=== PATIENT | female | born 1955 | race Caucasian/White ===

== ENCOUNTER 2016-11-28 17:18 | Emergency (ER) | payer BC ==
[~2016-11-28] VITALS: Ht 167.6 cm; Wt 104.0 kg
[2016-11-28 18:37] LABS: Albumin 3.5 g/dL (3.4-5.0); BUN/Creatinine Ratio 24.6; Calcium 8.8 mg/dL (8.5-10.1); Potassium 3.6 mmol/L (3.5-5.1)
[2016-11-28 18:39] LABS: Basophils # (auto) 0 uL; Basophils % (auto) 0.6 % (0.0-2.0); DEFINITIVE VIEW TRANSMISSION; Eosinophils # (auto) 0.3 uL; Eosinophils % (auto) 4.2 % (0.0-7.0); Hematocrit 43.6 % (36.0-46.0); Hemoglobin 13.6 g/dL (12.2-16.2); Lymphocytes # (auto) 1.8 uL; Lymphocytes % (auto) 27.4 % (10.0-50.0); Mean Corpuscular Hemoglobin 25.5 pg (28.0-32.0); Mean Corpuscular Hgb Conc. 31.1 g/dL (32.0-36.0); Mean Corpuscular Volume 82.1 fL (80.0-100.0); Mean Platelet Volume 7.9 fL (7.4-10.4); Monocytes # (auto) 0.6 uL; Monocytes % (auto) 9.5 % (0.0-12.0); Neutrophils # (auto) 3.8 uL; Neutrophils % (auto) 58.3 % (37.0-80.0); Platelet Count (auto) 286 10^3/uL (140-450); Red Cell Distribution Width 13.6 % (11.6-16.0); White Blood Cell 6.5 10^3/uL (4.4-10.8)
[2016-11-28 18:40] LABS: Bilirubin, Total 0.3 mg/dL (0.2-1.0); Total Protein 7.6 g/dL (6.4-8.2)
[2016-11-28] MEDS ORDERED: IPRATROPIUM BROM 0.5 MG/2.5ML INH SOL NEB ONE (21:15)
[2016-11-28] MEDS ORDERED: cefTRIAXone 1GM/50ML D5W 50 ML IV ONE (21:15)
[2016-11-28] MEDS ORDERED: SODIUM CHLORIDE 0.9% 1,000 ML IV ONE (21:15)
[2016-11-28] MEDS ORDERED: ALBUTEROL SULF 2.5 MG/0.5ML(0.5%) NEB SOLN NEB ONE (21:15)
[2016-11-28] MEDS ORDERED: methylPREDNISolone SOD SUCC 125 MG/2 ML VL IV ONE (21:15)
[2016-11-28 22:30] VITALS: BP 130/60
== END 2016-11-28 23:53 | disposition home or self-care (01) ==
LOC: ER 17:22
DX: J45.909 Unspecified asthma, uncomplicated (principal); J20.9 Acute bronchitis, unspecified
CPT/HCPCS: 36415; 71020; 80053; 84484; 85025; 93005; 94640; 96365; 96375; 99285; J0696; J2930; J7030

== ENCOUNTER 2018-12-02 20:43 | Emergency (ER) | payer BC, OTHER ==
[~2018-12-02] VITALS: Ht 167.6 cm; Wt 110.2 kg
[2018-12-02 22:05] VITALS: BP 152/65
== END 2018-12-02 23:04 | disposition home or self-care (01) ==
LOC: ER 20:46
DX: S60.222A Contusion of left hand, initial encounter (principal); Z88.0 Allergy status to penicillin; Z88.8 Allergy status to other drugs, medicaments and biological substances; W23.0XXA Caught, crushed, jammed, or pinched between moving objects, initial encounter; Y93.89 Activity, other specified; Y99.8 Other external cause status; Y92.89 Other specified places as the place of occurrence of the external cause
CPT/HCPCS: 29125; 73130

== ENCOUNTER 2019-01-14 05:07 | Emergency (ER) | payer OTHER ==
[~2019-01-14] VITALS: Ht 167.6 cm; Wt 124.3 kg
[2019-01-14 05:14] VITALS: BP 104/61
[2019-01-14] MEDS ORDERED: IPRATROPIUM BROM 0.5 MG/2.5ML INH SOL NEB ONE (06:45)
[2019-01-14] MEDS ORDERED: ALBUTEROL SULF 2.5 MG/0.5ML(0.5%) NEB SOLN NEB ONE (06:45)
== END 2019-01-14 07:36 | disposition home or self-care (01) ==
LOC: ER 05:07
DX: J20.9 Acute bronchitis, unspecified (principal); I10 Essential (primary) hypertension
CPT/HCPCS: 71046; 94640; 99283; J7611; J7644

== ENCOUNTER 2019-10-04 22:12 | Emergency (ER) | payer OTHER ==
[~2019-10-04] VITALS: Ht 167.6 cm; Wt 104.3 kg
[2019-10-04 23:08] LABS: Basophils # (auto) 0.1 uL; Basophils % (auto) 0.9 % (0.0-2.0); Eosinophils # (auto) 0.3 uL; Eosinophils % (auto) 4.1 % (0.0-7.0); Hematocrit 39.1 % (36.0-46.0); Hemoglobin 12.7 g/dL (12.2-16.2); Lymphocytes # (auto) 1.7 uL; Lymphocytes % (auto) 22.6 % (10.0-50.0); Mean Corpuscular Hemoglobin 26.9 pg (28.0-32.0); Mean Corpuscular Hgb Conc. 32.6 g/dL (32.0-36.0); Mean Corpuscular Volume 82.3 fL (80.0-100.0); Monocytes # (auto) 0.6 uL; Monocytes % (auto) 7.9 % (0.0-12.0); Neutrophils # (auto) 4.8 uL; Neutrophils % (auto) 64.5 % (37.0-80.0); Platelet Count (auto) 220 10^3/uL (140-450); Red Blood Cells 4.74 10^6/uL (4.0-5.20); Red Cell Distribution Width 13.8 % (11.8-14.3); White Blood Cell 7.4 10^3/uL (4.4-10.8)
[2019-10-04 23:26] LABS: Albumin 3.2 g/dL (3.4-5.0); BUN/Creatinine Ratio 29.6; Calcium 8.3 mg/dL (8.5-10.1); INR 1.02 (0.9-1.15); Partial Thromboplastin Time 27.8 sec (23.64-32.05); Potassium 3.7 mmol/L (3.5-5.1)
[2019-10-04 23:41] LABS: Bilirubin, Total 0.3 mg/dL (0.2-1.0); Total Protein 6.7 g/dL (6.4-8.2)
[2019-10-05 00:42] VITALS: BP 157/94
== END 2019-10-05 02:28 | disposition home or self-care (01) ==
LOC: EDBD 22:12 → ER 22:14
DX: S83.8X1A Sprain of other specified parts of right knee, initial encounter (principal); M25.461 Effusion, right knee; M17.11 Unilateral primary osteoarthritis, right knee; G40.909 Epilepsy, unspecified, not intractable, without status epilepticus; I10 Essential (primary) hypertension; Z88.1 Allergy status to other antibiotic agents; X58.XXXA Exposure to other specified factors, initial encounter; Y93.89 Activity, other specified; Y92.89 Other specified places as the place of occurrence of the external cause; Y99.8 Other external cause status
CPT/HCPCS: 36415; 73700; 80053; 85025; 85610; 85730; 93971

== ENCOUNTER 2021-05-15 20:21 | Emergency (ER) | payer OTHER ==
[~2021-05-15] VITALS: Ht 167.6 cm; Wt 104.3 kg
[2021-05-15 20:21] VITALS: BP 136/65
[2021-05-15] MEDS ORDERED: KETOROLAC TROMETH 60MG/2ML VIAL IM ONE (20:30)
[2021-05-15 22:09] LABS: Basophils # (auto) 0.1 10 ^3/uL (0-0.2); Hematocrit 44.6 % (36.0-46.0); Hemoglobin 14.6 g/dL (12.2-16.2); Neutrophils # (auto) 4.3 10 ^3/uL (1.6-8.6)
[2021-05-15 22:12] LABS: Basophils % (auto) 0.8 % (0.0-2.0); Eosinophils # (auto) 0.3 10 ^3/uL (0-0.8); Eosinophils % (auto) 5.1 % (0.0-7.0); Lymphocytes # (auto) 1.5 10 ^3/uL (0.4-5.4); Lymphocytes % (auto) 21.4 % (10.0-50.0); Mean Corpuscular Hemoglobin 26.1 pg (28.0-32.0); Mean Corpuscular Hgb Conc. 32.7 g/dL (32.0-36.0); Mean Corpuscular Volume 79.8 fL (80.0-100.0); Monocytes # (auto) 0.7 10 ^3/uL (0-1.3); Neutrophils % (auto) 62.7 % (37.0-80.0); Nucleated Red Blood Cells % 0.1 %; Red Blood Cells 5.59 10^6/uL (4.0-5.20); Red Cell Distribution Width 14.3 % (11.8-14.3); White Blood Cell 6.9 10^3/uL (4.4-10.8)
[2021-05-15 22:29] LABS: Alanine Aminotransferase 56 U/L (13-56); Albumin 4.1 g/dL (3.4-5.0); Anion Gap 6 (5-15); BUN/Creatinine Ratio 27.8; Blood Urea Nitrogen 15 mg/dL (7-18); Calcium 9.5 mg/dL (8.5-10.1); Carbon Dioxide 29 mmol/L (21-32); Chloride 103 mmol/L (98-107); GFR African American 145 mL/min; GFR Non-African American 120 mL/min; Glucose 107 mg/dL (74-106); Sodium 138 mmol/L (136-145)
[2021-05-15 22:35] LABS: Alkaline Phosphatase 108 U/L (45-117); Aspartate Aminotransferase 35 U/L (15-37); Bilirubin, Total 0.3 mg/dL (0.2-1.0); Total Protein 7.6 g/dL (6.4-8.2)
[2021-05-16] MEDS ORDERED: BUTORPHANOL TARTRATE 2 MG/1 ML VIAL IM ONE (01:15)
== END 2021-05-16 01:42 | disposition home or self-care (01) ==
LOC: ER 20:26
DX: M25.711 Osteophyte, right shoulder (principal); M75.81 Other shoulder lesions, right shoulder; M62.838 Other muscle spasm; M54.6 Pain in thoracic spine; I10 Essential (primary) hypertension; Z88.1 Allergy status to other antibiotic agents
CPT/HCPCS: 36415; 80053; 84484; 85025; 96372; 99283; J0595; J1885

== ENCOUNTER 2021-10-04 18:43 | Emergency (ER) | payer OTHER ==
[~2021-10-04] VITALS: Ht 167.6 cm; Wt 116.1 kg
[2021-10-05 00:23] VITALS: BP 154/74
[2021-10-05 00:47] LABS: Basophils # (auto) 0.1 10 ^3/uL (0-0.2); Eosinophils # (auto) 0.3 10 ^3/uL (0-0.8); Lymphocytes # (auto) 1.9 10 ^3/uL (0.4-5.4); Mean Corpuscular Hemoglobin 26.3 pg (28.0-32.0); Mean Corpuscular Hgb Conc. 32.4 g/dL (32.0-36.0); Monocytes # (auto) 0.7 10 ^3/uL (0-1.3); Neutrophils # (auto) 4.9 10 ^3/uL (1.6-8.6)
[2021-10-05 00:50] LABS: Eosinophils % (auto) 4.3 % (0.0-7.0); Hematocrit 44.2 % (36.0-46.0); Hemoglobin 14.3 g/dL (12.2-16.2); Mean Corpuscular Volume 81.3 fL (80.0-100.0); Monocytes % (auto) 8.7 % (0.0-12.0); Nucleated Red Blood Cells % 0.1 %; Red Blood Cells 5.44 10^6/uL (4.0-5.20); Red Cell Distribution Width 14.1 % (11.8-14.3); White Blood Cell 7.9 10^3/uL (4.4-10.8)
[2021-10-05 01:00] LABS: INR 0.97 (0.9-1.15); Partial Thromboplastin Time 27.6 sec (23.6-33.0)
[2021-10-05 01:02] LABS: Albumin 3.7 g/dL (3.4-5.0); BUN/Creatinine Ratio 28.1; Calcium 9.2 mg/dL (8.5-10.1); Magnesium 2.5 mg/dL (1.6-2.6); Potassium 4.5 mmol/L (3.5-5.1)
[2021-10-05 01:04] LABS: Bilirubin, Total 0.2 mg/dL (0.2-1.0); Total Protein 7.4 g/dL (6.4-8.2)
[2021-10-05 01:56] LABS: Urine Bacteria NONE SEEN /hpf (None Seen); Urine Blood Negative /uL (Negative); Urine Hyaline Cast FEW /lpf (0 - 2); Urine Specific Gravity 1.011 (1.001-1.035); Urine WBC 11 /hpf (0 - 5)
== END 2021-10-05 03:29 | disposition home or self-care (01) ==
LOC: ER 18:43
DX: R42 Dizziness and giddiness (principal); I10 Essential (primary) hypertension; Z88.1 Allergy status to other antibiotic agents; Z88.8 Allergy status to other drugs, medicaments and biological substances
CPT/HCPCS: 36415; 70450; 80053; 81001; 83735; 84484; 85025; 85610; 85730; 93005

== ENCOUNTER → 2023-01-27 | Outpatient (CLI) | payer MEDICARE ==
[2023-01-27 13:09] LABS: Basophils # (auto) 0.1 10 ^3/uL (0-0.2); Eosinophils # (auto) 0.3 10 ^3/uL (0-0.8); Hemoglobin 14.4 g/dL (12.2-16.2); Lymphocytes # (auto) 1.5 10 ^3/uL (0.4-5.4); Mean Corpuscular Hemoglobin 26.6 pg (28.0-32.0); Monocytes # (auto) 0.5 10 ^3/uL (0-1.3)
[2023-01-27 13:11] LABS: Eosinophils % (auto) 4.1 % (0.0-7.0); Hematocrit 42.9 % (36.0-46.0); Lymphocytes % (auto) 22.2 % (10.0-50.0); Mean Corpuscular Hgb Conc. 33.7 g/dL (32.0-36.0); Mean Corpuscular Volume 79.1 fL (80.0-100.0); Monocytes % (auto) 6.6 % (0.0-12.0); Neutrophils # (auto) 4.5 10 ^3/uL (1.6-8.6); Neutrophils % (auto) 66.1 % (37.0-80.0); Nucleated Red Blood Cells % 0.2 %; Red Blood Cells 5.42 10^6/uL (4.0-5.20); Red Cell Distribution Width 14.3 % (11.8-14.3); White Blood Cell 6.8 10^3/uL (4.4-10.8)
[2023-01-27 13:54] LABS: Albumin 3.4 g/dL (3.4-5.0); Calcium 9.1 mg/dL (8.5-10.1); Potassium 4.4 mmol/L (3.5-5.1)
[2023-01-27 14:03] LABS: BUN/Creatinine Ratio 15.9 (10.0-20.0); Bilirubin, Total 0.5 mg/dL (0.2-1.0); Total Protein 7.2 g/dL (6.4-8.2)
== END | disposition home or self-care (01) ==
LOC: LAB 12:28
PROVIDERS: ATTEND Nurse Practitioner Family
DX: I10 Essential (primary) hypertension (principal); R73.03 Prediabetes; E55.9 Vitamin D deficiency, unspecified
CPT/HCPCS: 36415; 80053; 80061; 82043; 82306; 83036; 84439; 84443; 85025

== ENCOUNTER 2023-06-23 16:54 | Inpatient (IN) | payer MEDICARE, OTHER ==
[~2023-06-23] VITALS: Ht 167.6 cm; Wt 83.5 kg
[2023-06-23 18:01] LABS: Basophils # (auto) 0.1 10 ^3/uL (0-0.2); Hemoglobin 14.4 g/dL (12.2-16.2); Monocytes # (auto) 0.7 10 ^3/uL (0-1.3)
[2023-06-23 18:03] LABS: Eosinophils # (auto) 0.2 10 ^3/uL (0-0.8); Eosinophils % (auto) 1.7 % (0.0-7.0); Hematocrit 43.8 % (36.0-46.0); Lymphocytes # (auto) 1.5 10 ^3/uL (0.4-5.4); Mean Corpuscular Hemoglobin 26.5 pg (28.0-32.0); Mean Corpuscular Hgb Conc. 32.9 g/dL (32.0-36.0); Mean Corpuscular Volume 80.4 fL (80.0-100.0); Monocytes % (auto) 6.8 % (0.0-12.0); Neutrophils # (auto) 8.1 10 ^3/uL (1.6-8.6); Neutrophils % (auto) 76.5 % (37.0-80.0); Red Blood Cells 5.44 10^6/uL (4.0-5.20); Red Cell Distribution Width 14.1 % (11.8-14.3); White Blood Cell 10.6 10^3/uL (4.4-10.8)
[2023-06-23 18:21] LABS: Urine Bacteria NONE SEEN /hpf (None Seen); Urine Blood Negative /uL (Negative); Urine Clarity Clear (Clear); Urine Color Yellow (Yellow); Urine Mucus FEW (None Seen); Urine Protein, UAD Negative (Negative); Urine Specific Gravity 1.022 (1.001-1.035); Urine Urobilinogen Normal (Negative); Urine WBC 2 /hpf (0 - 5); Urine pH 6.5 (5.0-8.0)
[2023-06-23 18:28] LABS: Alanine Aminotransferase 45 U/L (7-40); Albumin 4.4 g/dL (3.2-4.8); Alkaline Phosphatase 94 U/L (46-116); Anion Gap 7.3 (5-15); Aspartate Aminotransferase 28 U/L (13-40); BUN/Creatinine Ratio 26.5 (10.0-20.0); Bilirubin, Total 0.4 mg/dL (0.2-1.0); Blood Urea Nitrogen 18 mg/dL (9-23); Calcium 9.7 mg/dL (8.7-10.4); Carbon Dioxide 25.7 mmol/L (20-30); Chloride 106 mmol/L (98-107); Glucose 122 mg/dL (74-106); Lipase 28 U/L (12-53); Potassium 4.2 mmol/L (3.5-5.1); Sodium 139 mmol/L (136-145); Total Protein 6.9 g/dL (5.7-8.2)
[2023-06-23] MEDS ORDERED: SODIUM CHLORIDE 0.9% 1,000 ML IV ONE (18:45)
[2023-06-23] MEDS ORDERED: ONDANSETRON HCL 4 MG/2 ML VIAL IV ONE (18:45)
[2023-06-23] MEDS ORDERED: fentaNYL CITRATE 100 MCG/2 ML VL IV ONE (18:45)
[2023-06-23] MEDS ORDERED: PANTOPRAZOLE 40 MG/10 ML VIAL INJ IV ONE (19:45)
[2023-06-23] MEDS ORDERED: ONDANSETRON HCL 4 MG/2 ML VIAL IV PRN (19:45)
[2023-06-23] MEDS ORDERED: ACETAMINOPHEN 325 MG TAB PO PRN (19:45)
[2023-06-23] MEDS ORDERED: MORPHINE SULFATE INJ 2 MG/ml SYRG IV PRN (19:45)
[2023-06-23] MEDS ORDERED: metroNIDAZOLE 500MG/100ML 100 ML IV ONE (20:15)
[2023-06-23] MEDS ORDERED: CIPROFLOXACIN 400MG/200ML 200 ML IV ONE (20:15)
[2023-06-23 21:05] VITALS: PULSE 70; RESP 16; O2SAT 96
[2023-06-23] MEDS: HYDROcodone-ACET 5/325MG TAB PO PRN (21:16)
[2023-06-23] MEDS: SODIUM CHLORIDE 0.9% 1,000 ML IV SCH (21:16)
[2023-06-24] VITALS (7 sets, daily range): BP systolic 106–129; BP diastolic 51–66; PULSE 61–88; RESP 14–18; TEMP 97.5–98.6; O2SAT 93–97
[2023-06-24] MEDS: SODIUM CHLORIDE 0.9% 1,000 ML IV SCH ×2 (02:25→18:01)
[2023-06-24] MEDS ORDERED: OXYB5TAB10 PO (04:19)
[2023-06-24] MEDS ORDERED: metroNIDAZOLE 500MG/100ML 100 ML IV SCH (05:00)
[2023-06-24 07:04] LABS: Basophils # (auto) 0 10 ^3/uL (0-0.2); Eosinophils # (auto) 0 10 ^3/uL (0-0.8); Eosinophils % (auto) 0.1 % (0.0-7.0); Hemoglobin 14.2 g/dL (12.2-16.2); Monocytes # (auto) 1.2 10 ^3/uL (0-1.3)
[2023-06-24 07:06] LABS: Basophils % (auto) 0.1 % (0.0-2.0); Hematocrit 44.3 % (36.0-46.0); Lymphocytes % (auto) 5.6 % (10.0-50.0); Mean Corpuscular Hemoglobin 26.1 pg (28.0-32.0); Mean Corpuscular Volume 81.5 fL (80.0-100.0); Monocytes % (auto) 6.7 % (0.0-12.0); Neutrophils # (auto) 15.8 10 ^3/uL (1.6-8.6); Neutrophils % (auto) 87.5 % (37.0-80.0); Nucleated Red Blood Cells % 0.1 %; Red Blood Cells 5.44 10^6/uL (4.0-5.20); Red Cell Distribution Width 14.5 % (11.8-14.3)
[2023-06-24 07:14] LABS: Alanine Aminotransferase 34 U/L (7-40); Albumin 4.1 g/dL (3.2-4.8); Alkaline Phosphatase 80 U/L (46-116); Anion Gap 6.8 (5-15); Aspartate Aminotransferase 25 U/L (13-40); BUN/Creatinine Ratio 10.1 (10.0-20.0); Bilirubin, Total 0.5 mg/dL (0.2-1.0); Calcium 8.9 mg/dL (8.5-10.1); Carbon Dioxide 24.2 mmol/L (20-30); Chloride 106 mmol/L (98-107); Cholesterol 128 mg/dL (< 200); Glucose 115 mg/dL (74-106); HDL Cholesterol 46 mg/dL (40-59); LDL Cholesterol 74 mg/dL (< 100); Potassium 4.7 mmol/L (3.5-5.1); Sodium 137 mmol/L (136-145); Triglycerides 89 mg/dL (< 150)
[2023-06-24 07:15] LABS: Total Protein 6.7 g/dL (5.7-8.2)
[2023-06-24 07:19] LABS: Blood Urea Nitrogen 7 mg/dL (9-23)
[2023-06-24] MEDS: cefTRIAXone 1GM/50ML D5W 50 ML IV SCH (09:00)
[2023-06-24] MEDS ORDERED: levoFLOXacin 500MG 100 ML IV ONE (09:26)
[2023-06-24 09:55] LABS: INR 1.07 (0.9-1.15); Partial Thromboplastin Time 29.9 SEC (24.5-34.5); Prothrombin Time 11.2 sec (9.3-11.8)
[2023-06-24] MEDS ORDERED: PANTOPRAZOLE 40 MG/10 ML VIAL INJ IV SCH (10:00)
[2023-06-24] MEDS ORDERED: fentaNYL CITRATE 100 MCG/2 ML VL ONE (12:27)
[2023-06-24] MEDS ORDERED: MEPERIDINE HCL (50 MG/ML) 1 ML VIAL ONE (12:27)
[2023-06-24] MEDS ORDERED: MIDAZOLAM HCL 2MG/2ML 2ml VIAL (1mg/ml) ONE (12:27)
[2023-06-24] MEDS: metroNIDAZOLE 500MG/100ML 100 ML IV SCH ×2 (13:00→20:40)
[2023-06-24] MEDS ORDERED: PROPOFOL 10 MG/ML 20 ML IV ONE (13:28)
[2023-06-24] MEDS ORDERED: DexAMETHasone SOD PHOS 10MG/1ML VIAL INJ ONE (13:28)
[2023-06-24] MEDS ORDERED: SUGAMMADEX 200mg/2ml Vial (100MG/ML) IV ONE (13:28)
[2023-06-24] MEDS ORDERED: HYDROmorphone HCL 2 MG/ML VL/or syr IV PRN (13:30)
[2023-06-24] MEDS ORDERED: ePHEDrine SULFATE 50 MG/ML AMP IV PRN (13:30)
[2023-06-24] MEDS ORDERED: MIDAZOLAM HCL 2MG/2ML 2ml VIAL (1mg/ml) IV PRN (13:30)
[2023-06-24] MEDS ORDERED: ONDANSETRON HCL 4 MG/2 ML VIAL IV PRN (13:30)
[2023-06-24] MEDS ORDERED: MORPHINE SULFATE 4 MG/ML SYR/VIAL IV PRN (13:30)
[2023-06-24] MEDS ORDERED: LABETALOL HCL 5 MG/ML 4ML SYRINGE IV PRN (13:30)
[2023-06-24] MEDS: HYDROcodone-ACET 5/325MG TAB PO PRN (14:50)
[2023-06-25] MEDS: metroNIDAZOLE 500MG/100ML 100 ML IV SCH (04:28)
[2023-06-25 05:28] VITALS: BP 114/52; PULSE 65; RESP 14; TEMP 97.5; O2SAT 96
[2023-06-25] MEDS: SODIUM CHLORIDE 0.9% 1,000 ML IV SCH (06:33)
[2023-06-25 07:30] LABS: Basophils # (auto) 0 10 ^3/uL (0-0.2); Basophils % (auto) 0.1 % (0.0-2.0); Eosinophils # (auto) 0 10 ^3/uL (0-0.8); Hematocrit 38.6 % (36.0-46.0); Hemoglobin 12.5 g/dL (12.2-16.2); Lymphocytes # (auto) 0.6 10 ^3/uL (0.4-5.4); Lymphocytes % (auto) 4.8 % (10.0-50.0); Mean Corpuscular Hemoglobin 26.3 pg (28.0-32.0); Mean Corpuscular Hgb Conc. 32.4 g/dL (32.0-36.0); Mean Corpuscular Volume 81.2 fL (80.0-100.0); Monocytes # (auto) 0.7 10 ^3/uL (0-1.3); Monocytes % (auto) 5.6 % (0.0-12.0); Neutrophils # (auto) 11.8 10 ^3/uL (1.6-8.6); Neutrophils % (auto) 89.5 % (37.0-80.0); Red Blood Cells 4.76 10^6/uL (4.0-5.20); Red Cell Distribution Width 14.5 % (11.8-14.3); White Blood Cell 13.2 10^3/uL (4.4-10.8)
[2023-06-25 08:00] VITALS: PULSE 67; RESP 16; O2SAT 95
[2023-06-25 08:01] LABS: Anion Gap 4.2 (5-15); Carbon Dioxide 25.8 mmol/L (20-30); Chloride 108 mmol/L (98-107); Potassium 4.1 mmol/L (3.5-5.1); Sodium 138 mmol/L (136-145)
[2023-06-25 08:02] LABS: Calcium 8.5 mg/dL (8.7-10.4)
[2023-06-25 08:06] LABS: Glucose 139 mg/dL (74-106)
[2023-06-25 08:07] LABS: BUN/Creatinine Ratio 13.3 (10.0-20.0); Blood Urea Nitrogen 8 mg/dL (9-23)
[2023-06-25 09:02] VITALS: BP 114/51; PULSE 67; RESP 15; TEMP 98.9; O2SAT 95
[2023-06-25] MEDS ORDERED: AUG875T PO (10:43)
[2023-06-25] MEDS ORDERED: CIPR-173 PO (10:55)
[2023-06-25] MEDS ORDERED: METR-344 PO (10:55)
[2023-06-25] MEDS: cefTRIAXone 1GM/50ML D5W 50 ML IV SCH (11:06)
[2023-06-25 13:05] VITALS: BP 128/61; PULSE 74; RESP 16; TEMP 98.2; O2SAT 94
[2023-06-25 14:38] VITALS: BP 128/61; PULSE 74; RESP 16; TEMP 98.2; O2SAT 94
== END 2023-06-25 17:51 | disposition home or self-care (01) | DRG 343 ==
LOC: ER 16:54 → OVERFLOW 19:46 → WEST WING 06-24 03:42
PROVIDERS: ADMIT Internal Medicine; ATTEND Student in an Organized Health Care Education/Training Program
PROC: 0DTJ4ZZ Resection of Appendix, Percutaneous Endoscopic Approach (ICD-10-PCS; principal; 2023-06-24 12:24)
DX: K35.80 Unspecified acute appendicitis (principal); K76.0 Fatty (change of) liver, not elsewhere classified; E66.01 Morbid (severe) obesity due to excess calories; D25.9 Leiomyoma of uterus, unspecified; R73.03 Prediabetes; I10 Essential (primary) hypertension; Z88.0 Allergy status to penicillin; Z96.659 Presence of unspecified artificial knee joint; Z80.8 Family history of malignant neoplasm of other organs or systems; Z82.0 Family history of epilepsy and other diseases of the nervous system; Z68.29 Body mass index [BMI] 29.0-29.9, adult
CPT/HCPCS: 36415; 71045; 74176; 80048; 80053; 80061; 81001; 83036; 83605; 83690; 83735; 84443; 84484; 85025; 85610; 85730; 86850; 86900; 86901; 87040; 93005; 97163; C9113; G0378; J0696; J1100; J1956; J2250; J2405; J2704; J3490

== ENCOUNTER → 2023-12-18 | Outpatient (CLI) | payer OTHER ==
[~2023-12-18] MED LIST: CIPR-173 PO; METR-344 PO; OXYB5TAB10 PO
[2023-12-18 12:23] LABS: Basophils # (auto) 0.1 10 ^3/uL (0-0.2); Eosinophils # (auto) 0.3 10 ^3/uL (0-0.8); Hemoglobin 14.5 g/dL (12.2-16.2); Lymphocytes # (auto) 1.6 10 ^3/uL (0.4-5.4); Monocytes # (auto) 0.6 10 ^3/uL (0-1.3); Neutrophils # (auto) 3.9 10 ^3/uL (1.6-8.6); White Blood Cell 6.5 10^3/uL (4.4-10.8)
[2023-12-18 12:25] LABS: Basophils % (auto) 1.4 % (0.0-2.0); Eosinophils % (auto) 5.3 % (0.0-7.0); Hematocrit 44.8 % (36.0-46.0); Lymphocytes % (auto) 24.5 % (10.0-50.0); Mean Corpuscular Hemoglobin 26.2 pg (28.0-32.0); Mean Corpuscular Hgb Conc. 32.4 g/dL (32.0-36.0); Mean Corpuscular Volume 80.8 fL (80.0-100.0); Neutrophils % (auto) 59.8 % (37.0-80.0); Red Blood Cells 5.54 10^6/uL (4.0-5.20); Red Cell Distribution Width 13.9 % (11.8-14.3)
[2023-12-18 13:22] LABS: Alanine Aminotransferase 27 U/L (7-40); Albumin 4.5 g/dL (3.2-4.8); Alkaline Phosphatase 96 U/L (46-116); Anion Gap 4 (5-15); Aspartate Aminotransferase 26 U/L (13-40); BUN/Creatinine Ratio 11.3 (10.0-20.0); Blood Urea Nitrogen 9 mg/dL (9-23); Calcium 10.1 mg/dL (8.5-10.1); Carbon Dioxide 31 mmol/L (20-30); Chloride 104 mmol/L (98-107); Glucose 104 mg/dL (74-106); LDL Cholesterol 93 mg/dL (< 100); Potassium 4.6 mmol/L (3.5-5.1); Sodium 139 mmol/L (136-145); Triglycerides 142 mg/dL (< 150)
[2023-12-18 13:23] LABS: Bilirubin, Total 0.5 mg/dL (0.2-1.0); Cholesterol 152 mg/dL (< 200); HDL Cholesterol 42 mg/dL (40-59); Total Protein 7.6 g/dL (5.7-8.2)
== END | disposition home or self-care (01) ==
LOC: LAB 12:03
PROVIDERS: ATTEND Nurse Practitioner Family
DX: I10 Essential (primary) hypertension (principal); E55.9 Vitamin D deficiency, unspecified; R73.03 Prediabetes
CPT/HCPCS: 36415; 80053; 80061; 82043; 82306; 83036; 84439; 84443; 85025

== ENCOUNTER 2025-04-11 08:18 | Outpatient (CLI) | payer OTHER ==
[~2025-04-11 08:18] MED LIST changes: -OXYB5TAB10 PO; +OXYB5TAB14 PO
[2025-04-11 08:34] LABS: Urine Bacteria None Seen /hpf (None Seen)
[2025-04-11 08:46] LABS: Basophils # (auto) 0.1 10 ^3/uL (0-0.2); Eosinophils # (auto) 0.2 10 ^3/uL (0-0.8); Lymphocytes # (auto) 1.5 10 ^3/uL (0.4-5.4); Lymphocytes % (auto) 22.4 % (10.0-50.0); Monocytes # (auto) 0.6 10 ^3/uL (0-1.3); White Blood Cell 6.5 10^3/uL (4.4-10.8)
[2025-04-11 08:49] LABS: Basophils % (auto) 0.8 % (0.0-2.0); Eosinophils % (auto) 3.6 % (0.0-7.0); Hematocrit 42.7 % (36.0-46.0); Mean Corpuscular Hemoglobin 26.5 pg (28.0-32.0); Mean Corpuscular Hgb Conc. 32.8 g/dL (32.0-36.0); Mean Corpuscular Volume 80.9 fL (80.0-100.0); Monocytes % (auto) 9.7 % (0.0-12.0); Neutrophils # (auto) 4.1 10 ^3/uL (1.6-8.6); Neutrophils % (auto) 63.5 % (37.0-80.0); Nucleated Red Blood Cells % 0.1 %; Platelet Count (auto) 227 10^3/uL (140-450); Red Blood Cells 5.28 10^6/uL (4.0-5.20)
[2025-04-11 09:17] LABS: Alanine Aminotransferase 25 U/L (7-40); Albumin 4.4 g/dL (3.2-4.8); Alkaline Phosphatase 103 U/L (46-116); Anion Gap 6 (5-15); Aspartate Aminotransferase 21 U/L (<34); BUN/Creatinine Ratio 16.7 (10.0-20.0); Blood Urea Nitrogen 13 mg/dL (9-23); Calcium 9.9 mg/dL (8.7-10.4); Carbon Dioxide 29 mmol/L (20-31); Chloride 106 mmol/L (98-107); LDL Cholesterol 98 mg/dL (< 100); Potassium 4.5 mmol/L (3.5-5.1); Sodium 141 mmol/L (136-145); Total Protein 7.1 g/dL (5.7-8.2); Triglycerides 115 mg/dL (< 150)
[2025-04-11 09:18] LABS: Bilirubin, Total 0.4 mg/dL (0.2-1.0); Cholesterol 149 mg/dL (< 200); HDL Cholesterol 42 mg/dL (40-59)
[2025-04-11 09:19] LABS: Glucose 114 mg/dL (74-106)
[2025-04-11 09:22] LABS: Urine Blood Negative /uL (Negative); Urine Clarity Clear (Clear); Urine Color Light-Yellow (Yellow); Urine Protein, UAD Negative (Negative); Urine Specific Gravity 1.011 (1.001-1.035); Urine Squamous Epithelial Cell FEW /hpf (<5); Urine Urobilinogen Normal (Negative); Urine WBC 3 /HPF (0-5); Urine pH 6.5 (5.0-9.0)
== END 2025-04-11 17:00 | disposition home or self-care (01) ==
LOC: LAB 08:18
PROVIDERS: ATTEND Nurse Practitioner Family
DX: I10 Essential (primary) hypertension (principal); E55.9 Vitamin D deficiency, unspecified; E66.9 Obesity, unspecified; R73.03 Prediabetes
CPT/HCPCS: 36415; 80053; 80061; 81001; 82043; 82306; 83036; 84443; 85025

== ENCOUNTER 2025-10-25 13:52 | Emergency (ER) | payer MEDICARE, OTHER ==
[~2025-10-25] VITALS: Ht 167.6 cm; Wt 105.0 kg
--- NOTE | 2025-10-25 15:04 | ED.PDOC ---
Musculoskeletal HPI Comments A 70 YEAR OLD FEMALE PRESENTS TO THE ED WITH COMPLAINT OF LEFT KNEE PAIN. THE PATIENT STATES SHE HAD FALL YESTERDAY WHEN HER LEGS GAVE OUT ON HER. PATIENT STATES SHE WAS SEEN AT URGENT CARE AND STATES SHE WAS TOLD SHE HAD SUFFERED A LEFT LEG FRACTURE AND WAS PLACED IN A BRACE AND DISCHARGE. PATIENT STATES SHE CALLED PCP OFFICE TODAY AND STATES THAT SHE WAS TOLD NOTHING FURTHER COULD BE DONE AND PATIENT TO BE SEEN AT LOCAL EMERGENCY DEPARTMENT FOR FURTHER CARE PATIENT STATES SINCE SHE HAS BEEN HAVING INCREASING PAIN AND STATES SHE WAS NOT GIVEN ANY PAIN MEDICATIONS. PATIENT DENIES FEVER, CHILLS, SHORTNESS OF BREATH, CHEST PAIN, ABDOMINAL PAIN, NAUSEA, VOMITING, HEADACHE, OR OTHER COMPLAINTS. NO OTHER SYMPTOMS OR MODIFYING FACTORS AT THIS TIME. PATIENT IS ALERT, ORIENTED X 4, AND HAS STEADY GAIT. Chief Complaint: Lower Extremity Time Seen by MD: 15:00 Primary Care Provider: MALACHI Fountain Notes: Nurses Notes, Medications, Allergies Allergies: Coded Allergies: Amoxicillin (Verified Allergy, Unknown, 11/16/15) Clavulanic Acid (Verified Allergy, Unknown, 11/16/15) Home Meds Active Scripts Hydrocodone-Acetaminophen (Hydrocodone Bitartrate/AC 10-325 mg) 1 Tab Tab, 1 TAB PO BID, #14 TAB Prov:PENELOPE SUTHERLAND 10/25/25 Metronidazole (Flagyl) 500 Mg Tab, 1 TAB PO BID, #14 TAB Prov:VELASQUEZ LUBIN RESIDENT 06/25/23 Ciprofloxacin Hcl (Cipro) 500 Mg Tab, 1 TAB PO BID for 7 Days, #14 TAB Prov:VELASQUEZ LUBIN RESIDENT 06/25/23 Reported Medications Oxybutynin Chloride (Oxybutynin Chloride) 5 Mg Tab, 1 TAB PO BID 06/24/23 Information Source: Patient Mode of Arrival: Wheelchair Brought in by: SELF Location: Left Extremity Location: Knee Timing: Days Prehospital treatment: Treatment Severity: Moderate Able to Move Extremity: No Bear Weight: Limited Pain: Moderate, Severe Hand Dominance: Right, Left Circumstances: Fall Onset of Symptoms: After Trauma Symptoms: Swelling, Pain DVT Risk Factors: NONE Last Tetanus: UTD Associated signs and symptoms: Knee pain Past Medical History PAST MEDICAL HISTORY: HTN, Denies Surgical History: Denies all surgeries 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 Family History Family History: Reviewed,noncontributory to illness Social History Smoker: Non-Smoker Alcohol: Denies ETOH Use Drugs: Denies Drug Use Lives In: Home Constitutional: denies: chills, diaphoresis, fatigue, fever, malaise, sweats, weakness, others EENTM: denies: blurred vision, double vision, ear bleeding, ear discharge, ear drainage, ear pain, ear ringing, eye pain, eye redness, hearing loss, mouth pain, mouth swelling, nasal discharge, nose bleeding, nose congestion, nose pain, photophobia, tearing, throat pain, throat swelling, voice changes, others Respiratory: denies: cough, hemoptysis, orthopnea, SOB at rest, shortness of breath, SOB with excertion, stridor, wheezing, others Cardiovascular: denies: chest pain, dizzy spells, diaphoresis, Dyspnea on exertion, edema, irregular heart beat, left arm pain, lightheadedness, palpitations, PND, syncope, others Gastrointestinal: denies: abdomen distended, abdominal pain, blood streaked bowels, constipated, diarrhea, dysphagia, difficulty swallowing, hematemesis, melena, nausea, poor appetite, poor fluid intake, rectal bleeding, rectal pain, vomiting, others Genitourinary: denies: abnormal vagina bleeding, burning, dyspareunia, dysuria, flank pain, frequency, hematuria, incontinence, pain, , vagina discharge, urgency, others Neurological: denies: dizziness, fainting, headache, left sided numbness, left sided weakness, numbness, paresthesia, pre-existing deficit, right sided numbness, right sided weakness, seizure, speech problems, tingling, tremors, weakness, others Musculoskeletal: reports: joint pain (LEFT LEG), joint swelling (LEFT LEG); denies: back pain, gout, muscle pain, muscle stiffness, neck pain, others Integumetry: denies: bruises, change in color, change in hair/nails, dryness, laceration, lesions, lumps, rash, wounds, others Allergic/Immunocompromised: denies: Difficulty Healing, Frequent Infections, Hives, Itching, others Hematologic/Lymphatic: denies: anemia, blood clots, easy bleeding, easy bruising, swollen glands, others Endocrine: denies: excessive hunger, excessive sweating, excessive thirst, excessive urination, flushing, intolerance to cold, intolerance to heat, unexplained weight gain, unexplained weight loss, others Psychiatric: denies: anxiety, bipolar disorder, depression, hopeless, panic disorder, schizophrenia, sleepless, suicidal, others All Other Systems: Reviewed and Negative (MOTION WITH THE) Physical Exam General Appearance: No Apparent Distress, Normal HEENT: Normal ENT Inspection, PERRL/EOMI, Pharynx Normal, TMs Normal Neck: Full Range of Motion, Non-Tender, Normal, Normal Inspection Respiratory: Chest Non-Tender, Lungs Clear, No Accessory Muscle Use, No Respiratory Distress, Normal Breath Sounds Cardiovascular: No Edema, No JVD, No Murmur, No Gallop, Normal Peripheral Pulses, Regular Rate/Rhythm Breast Exam: Deferred Gastrointestinal: No Organomegaly, Non Tender, No Pulsatile Mass, Normal Bowel Sounds, Soft Genitalia: Deferred Pelvic: Deferred Rectal: Deferred Extremities: Decreased range of motion, No calf tenderness, Normal capillary refill, No pedal edema, Tender (AND MILD SWELLING WITH EFFUSION ON LEFT KNEE, NO DEFORMITY. ) Musculoskeletal : Apperance: Normal Neurologic: Alert, pattern technician II-XII nml as Tested, No Motor Deficits, Normal Affect, Normal Mood, No Sensory Deficits Cerebellar Function: Normal Reflexes: Normal Skin: Dry, Normal Color, Warm Peripheral Pulses: 2+ carotid (R), 2+ carotid (L), 2+ dorsalis pedis (R), 2+ dorsalis pedis (L) Lymphatic: No Adenopathy Was a procedure done? Was a procedure done?: No Differential Diagnosis EXT Differential Diagnosis: Fracture, Sprain, Contusion, Strain, Rheumatoid, Arthritis, Bursitis X-Ray, Labs, Meds, VS Vital Signs Date Time Temp Pulse Resp B/P (MAP) Pulse Ox O2 Delivery O2 Flow Rate FiO2 10/25/25 15:43 81 16 99 Room Air 10/25/25 15:43 97.8 81 16 137/63 (87) 99 97.8 10/25/25 13:56 97.3 60 15 120/79 95 97.3 Current Medications Medications (Trade) Dose Ordered Sig/Fide Route Start Time Stop Time Status Last Admin Acetaminophen/ Hydrocodone Bitart ([place] 10/325MG Tab) 1 tab ONCE ONCE PO 10/25/25 15:30 10/25/25 15:31 DC 10/25/25 15:57 [facility] [id number] [place] [id number] Ph: [phone] DIAGNOSTIC IMAGING Diagnostic Imaging Report : [id number] Signed PATIENT: NAVARRO MULLIGAN ACCT: [id number] UNIT: [id number] : 1955 LOC: ER ROOM / BED: / AGE / SEX: 70 / F ADM STATUS: REG ER SERVICE [id number] ORDERING PHYSICIAN: PENELOPE SUTHERLAND PROCEDURE(s): LKNCT - CT L KNEE WO CONTRAST REASON: FALL ORDER NUMBER(s): [id number], ACCESSION NUMBER(s): [id number] CLINICAL HISTORY: FALL TECHNIQUE: CT of the left knee was performed without intravenous contrast. This exam was performed according to our departmental dose optimization program. Up-to-date CT equipment and radiation dose reduction techniques are utilized as appropriate. CTDI 8.9 mGy DLP 281 mGy.cm COMPARISON: CT R KNEE WO CONTRAST on DOS: 10/04/19 FINDINGS: There is a 1.3 cm focal depression in the posterior aspect of the lateral tibial plateau best seen on coronal reformatted images number 60 through 70.There is slight narrowing of the medial joint space and patellofemoral joint space. Subchondral cysts underlying the medial tibial spine. Narrowing of the patellofemoral joint with slight articular surface irregularity of the posterior patella. Traction enthesophyte superior patella. Minimal joint effusion. IMPRESSION: 1. There are several findings suggesting degenerative changes. Small focal depression in the posterior aspect lateral tibial plateau may represent a fracture of indeterminate age. Recommend MRI for further evaluation ATED BY: LYN KEITA MD DICTATED DATE/TIME: 10/25/251636 SIGNED BY: LYN KEITA MD SIGNED DATE/TIME: 10/25/251636 CC: X-Ray, Labs, Meds, VS Comment COURSE: EXTERNAL MEDICAL RECORDS REVIEWED: [NONE] INDEPENDENT HISTORIANS: [NONE] SOCIAL DETERMINANTS OF HEALTH: [NONE] LABS ORDERED: NONE REVIEWED AND INTERPRETED RESULTS: NONE IMAGING ORDERED: NONE TREATMENTS ORDERED: PROCEDURES PERFORMED: NONE CRITICAL CARE TIME: NONE I HAVE DISCUSSED THE PATIENT WITH THE ATTENDING PHYSICIAN DR. JACOBSON AND HE AGREES WITH THE PATIENT'S PLAN OF CARE AND DISPOSITION. BASED ON HISTORY OF PRESENT ILLNESS, AND PHYSICAL EXAM, PATIENT WILL BE DISCHARGED HOME. DISCUSSED PLAN FOR DISCHARGE HOME WITH RX []. MEDICATION WARNINGS GIVEN. SHARED DECISION MAKING: DISCUSSED WITH PATIENT THAT THEIR WORKUP WAS NORMAL. PATIENT INSTRUCTED TO FOLLOW UP WITH PRIMARY CARE PROVIDER IN 1-2 DAYS FOR RE- EVALUATION OF SYMPTOMS. PATIENT VERBALIZES UNDERSTANDING TO RETURN TO ED FOR NEW OR WORSENING SYMPTOMS OR IF FOLLOW UP WITH PCP CANNOT BE OBTAINED. PATIENT FEELS COMFORTABLE GOING HOME AT THIS TIME. ALL QUESTIONS ADDRESSED AT TIME OF DISCHARGE. Time of 1ST Reevaluation: 17:00 Reevaluation 1ST: Improved Patient Education/Counseling: Diagnosis, Treatment, Need For Follow Up Family Education/Counseling: Diagnosis, Treatment, Need For Follow Up, No Family Present Medical Screening: No EMC Exist At This Time Departure 1 Departure Time of Disposition: 17:00 Impression: Primary Impression: Closed fracture of lateral portion of left tibial plateau Qualified Codes: S82.122A - Displaced fracture of lateral condyle of left tibia, initial encounter for closed fracture Additional Impression: Left knee DJD Qualified Codes: M17.12 - Unilateral primary osteoarthritis, left knee Disposition: 01 HOME / SELF CARE / HOMELESS Condition: Stable Additional Instructions: F/U ORTHOPEDIST IN 2 DAYS RECHECK. IF CONDITION BECOME WORSE, RETURN TO ED [facility]. e-Prescriptions Hydrocodone-Acetaminophen (Hydrocodone Bitartrate/AC 5-325 mg) 1 Tab Tab 1 TAB PO BID, #12 TAB Prov: PENELOPE SUTHERLAND 10/25/25 Discharged With: Self, Spouse Critical Care Note Critical Care Time?: No Stability Stability form required: No Heart Score Heart Score: Heart Score Response (Comments) Value History N/A 0 EKG N/A 0 Age N/A 0 Risk Factors N/A 0 Troponin N/A 0 Total 0 I personally scribed for PENELOPE SUTHERLAND ([email or web address]) on 10/25/25 at 15:04. Electronically submitted by Bernabe Thomason ([employer]). I personally scribed for PENELOPE SUTHERLAND ([email or web address]) on 10/25/25 at 15:35. Electronically submitted by Bernabe Thomason ([employer]). I personally scribed for PENELOPE SUTHERLAND ([email or web address]) on 10/25/25 at 16:45. Electronically submitted by Bernabe Thomason ([employer]). PENELOPE SUTHERLAND Oct 25, 2025 15:04
[2025-10-25] MEDS: HYDROcodone-ACET 10/325MG TAB PO ONE (15:57)
--- NOTE | 2025-10-25 16:40 | DVH ---
CLINICAL HISTORY: FALL TECHNIQUE: CT of the left knee was performed without intravenous contrast. This exam was performed according to our departmental dose optimization program. Up-to-date CT equipment and radiation dose reduction techniques are utilized as appropriate. CTDI 8.9 mGy DLP 281 mGy.cm COMPARISON: CT R KNEE WO CONTRAST on DOS: 10/04/19 FINDINGS: There is a 1.3 cm focal depression in the posterior aspect of the lateral tibial plateau best seen on coronal reformatted images number 60 through 70.There is slight narrowing of the medial joint space and patellofemoral joint space. Subchondral cysts underlying the medial tibial spine. Narrowing of the patellofemoral joint with slight articular surface irregularity of the posterior patella. Traction enthesophyte superior patella. Minimal joint effusion. IMPRESSION: 1. There are several findings suggesting degenerative changes. Small focal depression in the posterior aspect lateral tibial plateau may represent a fracture of indeterminate age. Recommend MRI for further evaluation
[2025-10-25] MEDS ORDERED: HYDR-4798 PO (16:49)
[2025-10-25 16:57] VITALS: BP 130/80; PULSE 64; RESP 16; TEMP 97.7; O2SAT 98
[2025-10-25] MEDS ORDERED: HYDR-4902 PO (16:58)
== END 2025-10-25 16:58 | disposition home or self-care (01) ==
LOC: ER 13:52
DX: S82.142A Displaced bicondylar fracture of left tibia, initial encounter for closed fracture (principal); Z79.891 Long term (current) use of opiate analgesic; Z88.0 Allergy status to penicillin; W18.39XA Other fall on same level, initial encounter; Y93.89 Activity, other specified; Y92.89 Other specified places as the place of occurrence of the external cause; Y99.8 Other external cause status
CPT/HCPCS: 73700